=== PATIENT | male | born 1940 | race Caucasian/White ===

== ENCOUNTER 2017-01-04 16:30 | Observation (INO) ==
[2017-01-04 17:09] LABS: Basophils % 0.1 %; Eosinophils # 0.1 K/mcL (0.0-0.6); Eosinophils % 1.1 %; Hematocrit 25.3 % (37.5-50.1); Hemoglobin 8.4 g/dL (12.9-16.9); Immature Granulocytes % 0.4 % (0-4); Lymphocytes % 27.5 %; Mean Corpuscular HGB Conc 33.2 g/dL (31.6-35.5); Mean Corpuscular Hemoglobin 29.1 pg (28.0-33.3); Mean Corpuscular Volume 87.5 fL (83.0-100.0); Mean Platelet Volume 10.7 fL (9.4-12.4); Monocytes # 0.6 K/mcL (0.0-1.3); Monocytes % 7.7 %; Neutrophils # 4.5 K/mcL (1.6-8.9); Platelet Count 123 K/mcL (140-400); Red Blood Count 2.89 M/mcL (4.19-5.50); Red Cell Distribution Width 17.2 % (11.5-14.5); Segmented Neutrophils % 63.2 %
[2017-01-04 17:15] LABS: INR 1.1; Prothrombin Time 12.3 Seconds (9.4-12.1)
[2017-01-04 17:18] LABS: Activated Partial Thrombo Time 28.8 Seconds (26.0-36.0)
[2017-01-04 17:27] LABS: Alanine Aminotransferase 11 Units/L (0-55); Albumin/Globulin Ratio 1.3 (1.1-2.2); Alkaline Phosphatase 75 Units/L (38-126); Aspartate Amino Transferase 14 Units/L (5-34); BUN/Creatinine Ratio 23 (6-26); Bilirubin,Total 0.6 mg/dL (0.2-1.2); Blood Urea Nitrogen 21 mg/dL (8-26); Calcium 9.2 mg/dL (8.6-10.8); Carbon Dioxide 25 mEq/L (19-29); Chloride 111 mEq/L (98-109); Globulin 2.4 g/dL (2.4-3.5); Glucose 105 mg/dL (70-99); Osmolality,Calculated 299 (280-300); Potassium 4.2 mEq/L (3.5-4.5); Sodium 143 mEq/L (136-145); Total Protein 5.4 g/dL (6.0-8.3); eGFR For African Americans > 60 (> 60); eGFR For Non-African Americans > 60 (> 60)
--- NOTE | 2017-01-04 17:52 | Emergency Department Note ---
Disposition Clinical Impression: Lower gastrointestinal hemorrhage, Diverticulitis, Anemia Disposition: Admitted As Inpatient Condition: Fair Referrals: Brandon Cancino DO [Primary Care Provider] - Forms: ED Satisfaction Letter Time of Disposition: 18:10 (lauro jauregui) General Adult HPI - General Chief complaint: ED GI Bleed Stated complaint: rectal bleeding , abd. pain Time Seen by Provider: 01/04/17 16:45 Source: patient, family Mode of arrival: ambulatory Limitations: no limitations - History of Present Illness HPI Narrative: Patient was seen planing of rectal bleeding and weakness patient states that he is on blood thinner he states he has had a history of hemorrhoids he denies diverticular disease [facility] records shows history of diverticulosis he denies chest pain chest pressure states there is having abdominal pain denies any rashes or lesions denies any numbness [place] is cough cold or flulike symptoms Onset (ago): day(s) Location: buttocks Radiation: non-radiation Pain Severity: moderate Pain Scale: 5 Quality: aching Improves with: nothing Worsens with: nothing Associated symptoms: Reports: malaise, weakness. Denies: confusion, chest pain , cough, diaphoresis, fever/chills, headaches, loss of appetite, nausea/vomiting , seizure, shortness of breath, syncope Treatments Prior to Arrival: none - Related Data Home Medications Medication Instructions Recorded Confirmed Aspirin Enteric Coated [Aspirin EC] 81 mg PO DAILY 05/13/16 01/04/17 Atorvastatin [Lipitor] 80 mg PO HS 05/13/16 01/04/17 Carvedilol 3.125 mg PO BID 05/13/16 01/04/17 Nitroglycerin [Nitrostat] 0.4 mg SL AD PRN 05/13/16 01/04/17 Omeprazole [PriLOSEC] 20 mg PO DAILY 05/13/16 01/04/17 Ticagrelor [Brilinta] 90 mg PO BID 05/13/16 01/04/17 Furosemide [Lasix] 20 mg PO DAILY 08/18/16 01/04/17 Potassium Chloride [Klor-Con 10 meq PO DAILY 08/18/16 01/04/17 Sprinkle] Allopurinol [Zyloprim] 300 mg PO DAILY 01/04/17 01/04/17 Previous Rx's Medication Instructions Recorded Ipratropium/Albuterol Neb [Duoneb] 3 ml IH [id number] 30 Days 06/01/16 Allergies Allergy/AdvReac Type Severity Reaction Status Date / Time No Known Allergies Allergy Verified 06/29/16 13:15 All systems ED: reviewed and negative except as stated. Constitutional: Denies: fever Eyes: Denies: eye pain ENT ED: Denies: ear pain Respiratory: Denies: cough Gastrointestinal: Reports: abdominal pain, nausea, hematochezia Genitourinary: Denies: urgency Musculoskeletal: Denies: back pain Integumentary: Denies: rash Neurological: Denies: headache Psychiatric: Denies: anxiety Endocrine: Denies: fatigue Hematological/Lymphatic: Reports: easy bleeding, easy bruising Allergic/Immunologic: Denies: facial swelling Past Medical History - Past Medical History Attestation: Yes The following information was validated with the patient. Source: patient, old records reviewed, nursing notes reviewed Medical history: Reports: coronary artery disease, GERD, hyperlipidemia, hypertension, myocardial infarction Surgical history: Reports: angioplasty/stent Psychiatric history: Reports: no psych history - Social History Smoking Status: Former smoker Smokeless Tobacco Status: No Alcohol use: Reports: none Drug use: Reports: none Physical Exam - General Limitations: no limitations General appearance: alert, in no apparent distress - Head Head exam: atraumatic, normocephalic, normal inspection - Eye Eye exam: Present: normal appearance, PERRL, EOMI - ENT ENT exam: normal exam, normal oropharynx, mucous membranes moist, normal external ear exam - Neck Neck exam: Present: normal inspection, full ROM, trachea midline - Chest Chest inspection: Present: normal inspection, symmetric chest wall rise - Respiratory Respiratory exam: Present: normal lung sounds bilaterally - Cardiovascular Cardiovascular exam: Present: regular rate, normal rhythm, normal heart sounds - Abdominal Exam Abdominal exam: Present: soft, Non-Tender, normal bowel sounds. Absent: mass, pulsatile mass - Rectal Exam Rectal exam: Present: normal rectal tone, heme (+) stool. Absent: hemorrhoids - Extremities Exam Extremities exam: Present: normal inspection, full ROM, normal capillary refill. Absent: tenderness, joint swelling - Expanded Lower Extremity Exam Neurovascular/Tendon exam: Present: normal capillary refill, normal fine/light touch Gait: observed and normal - Back Exam Back exam: Present: normal inspection, full ROM. Absent: rashes - Neurological Exam Neurological exam: Present: alert, oriented X3, CN II-XII intact, normal gait - Psychiatric Psychiatric exam: Present: normal affect, normal mood - Skin Skin exam: Present: warm, dry, intact, normal color Course Course Narrative: Patient was seen and examined labs ordered CT performed showing acute diverticular disease will start on antibiotics admit started on IV fluids we will monitor due the fact he is on Brilinta ultimately need endoscopy Vital Signs Temperature 99.8 F H 01/04/17 16:36 Pulse Rate 70 01/04/17 16:36 Respiratory Rate 18 01/04/17 16:36 Blood Pressure 98/63 01/04/17 16:36 O2 Sat by Pulse Oximetry 98 01/04/17 16:36 Temperature 98.2 F 01/04/17 18:06 Pulse Rate 69 01/04/17 18:06 Respiratory Rate 14 01/04/17 18:06 Blood Pressure 100/49 01/04/17 18:06 O2 Sat by Pulse Oximetry 98 01/04/17 18:06 Oxygen Delivery Oxygen Delivery Room Air Medical Decision Making - [facility] Narrative Medical decision making narrative: DIVERTICULITIS hemorrhoids recommended admission - Medical Records Medical records reviewed: Yes I reviewed the patient's medical records. - Lab Data Lab results reviewed: Yes I reviewed the patient's lab results. Result diagrams: 01/04/17 17:02 01/04/17 17:02 Lab Results 01/04/17 01/04/17 01/04/17 Range/Units 17:02 17:02 17:02 WBC 7.1 (4.3-11.1) K/mcL RBC 2.89 L (4.19-5.50) M/mcL Hgb 8.4 L (12.9-16.9) g/dL Hct 25.3 L (37.5-50.1) % MCV 87.5 (83.0-100.0) fL MCH 29.1 (28.0-33.3) pg MCHC 33.2 (31.6-35.5) g/dL RDW 17.2 H (11.5-14.5) % Plt Count 123 L (140-400) K/mcL MPV 10.7 (9.4-12.4) fL Immature Gran % 0.4 (0-4) % Seg Neutrophils % 63.2 % Lymphocytes % 27.5 % Monocytes % 7.7 % Eosinophils % 1.1 % Basophils % 0.1 % Neutrophils # 4.5 (1.6-8.9) K/mcL Lymphocytes # 2.0 (0.6-4.6) K/mcL Monocytes # 0.6 (0.0-1.3) K/mcL Eosinophils # 0.1 (0.0-0.6) K/mcL Basophils # 0.0 (0.0-0.2) K/mcL PT 12.3 H (9.4-12.1) Seconds INR 1.1 APTT 28.8 (26.0-36.0) Seconds Sodium 143 (136-145) mEq/L Potassium 4.2 (3.5-4.5) mEq/L Chloride 111 H (98-109) mEq/L Carbon Dioxide 25 (19-29) mEq/L BUN 21 (8-26) mg/dL Creatinine 0.91 (0.72-1.25) mg/dL Est GFR ( Amer) > 60 (> 60) Est GFR (Non-Af Amer) > 60 (> 60) BUN/Creatinine Ratio 23 (6-26) Glucose 105 H (70-99) mg/dL Calculated Osmolality 299 (280-300) Calcium 9.2 (8.6-10.8) mg/dL Total Bilirubin 0.6 (0.2-1.2) mg/dL AST 14 (5-34) Units/L ALT 11 (0-55) Units/L Alkaline Phosphatase 75 (38-126) Units/L Serum Total Protein 5.4 L (6.0-8.3) g/dL Albumin 3.0 L (3.5-5.0) g/dL Globulin 2.4 (2.4-3.5) g/dL Albumin/Globulin Ratio 1.3 (1.1-2.2) - Radiology Data Radiology results reviewed: Yes I reviewed the patient's radiology results. ITS Impressions Abdomen/Pelvis CT 01/04/17 16:48 IMPRESSION: Subtle injection is seen of fat near the junction of descending colon and proximal sigmoid colon, for which mild diverticulitis should be considered given patient history. Follow-up to resolution is suggested. No evidence of obstructive uropathy. D/ / Benton White MD / Benton White MD Interpreting Provider: Benton White MD Critical Care Time Critical Care Time: No
[2017-01-04] MEDS ORDERED: MetroNIDAZOLE 500 MG/100 ML 500 MG/100 ML BAG IVPB ONE (18:15)
[2017-01-04] MEDS ORDERED: Naloxone 0.4 MG/ML INJ IVP PRN (20:48)
[2017-01-04] MEDS ORDERED: Nitroglycerin 0.4 MG TAB.SUBL SL PRN (20:48)
[2017-01-04] MEDS ORDERED: 0.9 % Sodium Chloride 1,000 ML IVC SCH ×2 (20:48→22:33)
[2017-01-04 22:03] LABS: Basophils % 0.2 %; Eosinophils # 0.1 K/mcL (0.0-0.6); Eosinophils % 2.4 %; Hemoglobin 7.4 g/dL (12.9-16.9); Immature Granulocytes % 0.4 % (0-4); Lymphocytes # 1.8 K/mcL (0.6-4.6); Mean Corpuscular HGB Conc 33.6 g/dL (31.6-35.5); Mean Corpuscular Hemoglobin 29.5 pg (28.0-33.3); Mean Corpuscular Volume 87.6 fL (83.0-100.0); Mean Platelet Volume 10.7 fL (9.4-12.4); Monocytes # 0.4 K/mcL (0.0-1.3); Monocytes % 7.2 %; Neutrophils # 3.1 K/mcL (1.6-8.9); Platelet Count 111 K/mcL (140-400); Red Blood Count 2.51 M/mcL (4.19-5.50); Red Cell Distribution Width 17.2 % (11.5-14.5); Segmented Neutrophils % 56.8 %
[2017-01-04] MEDS: MetroNIDAZOLE 500 MG/100 ML 500 MG/100 ML BAG IVPB SCH (22:41)
[2017-01-04] MEDS: *HR* Ticagrelor 90 MG TABLET PO SCH (22:41)
[2017-01-04] MEDS: Ipratropium/Albuterol Neb 3 ML IH SCH ×2 (23:26→23:29)
[2017-01-05] MEDS: MetroNIDAZOLE 500 MG/100 ML 500 MG/100 ML BAG IVPB SCH ×3 (04:25→14:45)
[2017-01-05] MEDS: Ipratropium/Albuterol Neb 3 ML IH SCH ×3 (04:44→13:48)
[2017-01-05 05:25] LABS: Basophils % 0.2 %; Eosinophils # 0.1 K/mcL (0.0-0.6); Eosinophils % 2.3 %; Hematocrit 18.9 % (37.5-50.1); Hemoglobin 6.4 g/dL (12.9-16.9); Immature Granulocytes % 0.2 % (0-4); Lymphocytes # 1.5 K/mcL (0.6-4.6); Lymphocytes % 26.2 %; Mean Corpuscular HGB Conc 33.9 g/dL (31.6-35.5); Mean Corpuscular Hemoglobin 29.5 pg (28.0-33.3); Mean Corpuscular Volume 87.1 fL (83.0-100.0); Mean Platelet Volume 10.6 fL (9.4-12.4); Monocytes # 0.4 K/mcL (0.0-1.3); Monocytes % 6.6 %; Neutrophils # 3.6 K/mcL (1.6-8.9); Platelet Count 93 K/mcL (140-400); Red Blood Count 2.17 M/mcL (4.19-5.50); Red Cell Distribution Width 17.2 % (11.5-14.5); Segmented Neutrophils % 64.5 %
[2017-01-05 05:30] LABS: INR 1.2; Prothrombin Time 12.8 Seconds (9.4-12.1)
[2017-01-05 05:32] LABS: Activated Partial Thrombo Time 28.4 Seconds (26.0-36.0)
[2017-01-05 05:39] LABS: BUN/Creatinine Ratio 25 (6-26); Blood Urea Nitrogen 20 mg/dL (8-26); Calcium 8.2 mg/dL (8.6-10.8); Carbon Dioxide 21 mEq/L (19-29); Chloride 113 mEq/L (98-109); Glucose 99 mg/dL (70-99); Osmolality,Calculated 297 (280-300); Potassium 3.6 mEq/L (3.5-4.5); Sodium 142 mEq/L (136-145); eGFR For African Americans > 60 (> 60); eGFR For Non-African Americans > 60 (> 60)
[2017-01-05] MEDS ORDERED: 0.9 % Sodium Chloride 250 ML ONE ×2 (07:57→11:34)
[2017-01-05] MEDS: *HR* Ticagrelor 90 MG TABLET PO SCH (08:21)
[2017-01-05] MEDS ORDERED: Aspirin Enteric Coated 81 MG Tablet PO SCH (09:00)
[2017-01-05] MEDS ORDERED: Furosemide 20 MG TABLET PO SCH (09:00)
--- NOTE | 2017-01-05 11:39 | Internal Med History&Physical ---
Date of Encounter: 01/05/17 Time of Encounter: 11:05 Assessment and Plan (1) Diverticulitis Current visit: Yes Status: Acute He has been started on IV Flagyl and Cipro. Qualifiers: Diverticulitis site: large intestine Diverticulitis bleeding: with bleeding Diverticulitis complication: without perforation or abscess Qualified Code(s): K57.33 - Diverticulitis of large intestine without perforation or abscess with bleeding (2) Anemia Current visit: Yes Status: Chronic Hemoglobin was 7.7 on 08/18/2016. We will order anemia testing in a.m. His hemoglobin this morning was 6.4 and 2 units packed red blood cells were ordered. Aspirin and Brilinta will be held. Qualifiers: Anemia type: unspecified type Qualified Code(s): D64.9 - Anemia, unspecified (3) Gout Current visit: No Status: Chronic Uric acid level was 6.4 on 06/29/2016. Qualifiers: Gout site: unspecified site Gout etiology: unspecified cause Chronicity: chronic Presence of tophus: without tophus Qualified Code(s): M1A.9XX0 - Chronic gout, unspecified, without tophus (tophi) Internal Medicine - H&P: HPI Chief complaint: Hematochezia, weakness Admitted From: Home Plans for Post Hospital Care: Home History of present illness: Mr. John is a 76 year old male came to emergency room stating he had noted hematochezia approximately noon time on January 03. There was no significant abdominal discomfort at the time. He has total of 4 BMs Tuesday and 4 BMs the following day with all of them showing evidence of hematochezia. He began to feel more weak. He came to emergency room and was evaluated and found to have hemoglobin of 8.4. Abdominal/pelvic CT showed evidence of diverticulitis near the junction of the descending and sigmoid colon. [facility]. He denies previous episodes of hematochezia. He reports colonoscopy was done 2009 and showed only internal hemorrhoids. He states he had upper GI bleed July 2016 and was hospitalized [facility]. He does not know the exact diagnosis. He was placed on Prilosec following EGD and has had no further evidence of upper GI bleeds. He reports an intervention was done during the EGD to treat the upper GI bleed but he does not know details. He denies disorders of his liver gallbladder or exocrine pancreas. He states he has mild lower abdominal discomfort at the present time. Past Med Surg Social Fam HX - Past Medical History Medical history: COPD, coronary artery disease, GERD, GI bleed, hyperlipidemia, hypertension, myocardial infarction Psychiatric history: no psych history - Past Surgical History Surgical History: angioplasty/stent - Social History Smoking Status: Former smoker Smokeless Tobacco Status: No Alcohol use: none Drug use: none Internal Medicine - H&P: Meds Aspirin Enteric Coated [Aspirin EC] 81 mg PO DAILY 05/13/16 [History] Atorvastatin [Lipitor] 80 mg PO HS 05/13/16 [History] Carvedilol 3.125 mg PO BID 05/13/16 [History] Nitroglycerin [Nitrostat] 0.4 mg SL AD PRN 05/13/16 [History] Omeprazole [PriLOSEC] 20 mg PO DAILY 05/13/16 [History] Ticagrelor [Brilinta] 90 mg PO BID 05/13/16 [History] Ipratropium/Albuterol Neb [Duoneb] 3 ml IH [id number] 30 Days 06/01/16 [Rx] Furosemide [Lasix] 20 mg PO DAILY 08/18/16 [History] Potassium Chloride [Klor-Con Sprinkle] 10 meq PO DAILY 08/18/16 [History] Allopurinol [Zyloprim] 300 mg PO DAILY 01/04/17 [History] Allergies No Known Allergies Allergy (Verified 06/29/16 13:15) All Systems PM: A 10-system review of systems was performed and is negative for pertinent findings except as documented above in the HPI. Review of systems: Gen.: He states his weight has been stable the past few months Cardiovascular: He has history of hypertension. He has known ASHD status post [place] April 2016 with 4 stents placed at [facility]. He has a diagnosis of CHF and has occasional leg edema. He denies DVT or pulmonary embolus. Respiratory: He smoked from age [age] never more than one fourth pack per day. He states he had pulmonary function test within the past year and was told he had COPD but does not use home oxygen. GI: As per history of present illness : He denies hematuria dysuria or kidney stones Neurologic: He denies large distribution strokes or seizures. Endocrine: He has hyperlipidemia but denies diabetes or thyroid disease Hematology/oncology: Denies blood disorders cancers or anemia Psychiatric: He denies anxiety depression other mental health issues [place] skeletal: He has DJD and gout but denies other bone joint or muscle disorders. - Constitutional Vitals: Temp Pulse Resp BP Pulse Ox 98.5 F 76 16 124/67 97 01/05/17 10:52 01/05/17 10:52 01/05/17 10:52 01/05/17 10:52 01/05/17 10:52 Exam: Gen.: He is a well-developed well-nourished male who appears in no significant distress at present time HEENT: Head is atraumatic and normocephalic. Eyes: EOMI. There is no scleral icterus. Mouth: Mucosa is moist. Neck: Supple and nontender. There is no thyromegaly or adenopathy noted. Heart: Regular without murmurs gallops or ectopics Lungs: No wheezes or crackles are heard Abdomen: Abdomen slightly tympanitic to percussion. There is mild discomfort palpating the lower mid abdominal area. Bowel sounds are diminished. No masses or guarding noted. Extremities: There is no cyanosis edema or clubbing noted. Dorsalis pedis and posttibial pulses are trace palpable bilaterally. Neurologic: Mental status: He is talkative and a good historian. Cranial nerves : Smile is symmetric. Forehead wrinkles bilaterally. Tongue protrudes midline. EOMI. Motor: There is no pronator drift. Cerebellar: Finger to nose is intact bilaterally. Skin: Warm and dry Internal Med - H&P Results - Labs CBC & Chem 7: 01/05/17 05:10 01/05/17 05:10 Labs: Short CBC 01/04/17 01/05/17 Range/Units 21:56 05:10 WBC 5.5 5.6 (4.3-11.1) K/mcL Hgb 7.4 L 6.4 L (12.9-16.9) g/dL Hct 22.0 L 18.9 L (37.5-50.1) % Plt Count 111 L 93 L (140-400) K/mcL Neutrophils # 3.1 3.6 (1.6-8.9) K/mcL BMP 05/17/17 05:10 Sodium 142 Potassium 3.6 Chloride 113 H Carbon Dioxide 21 BUN 20 Creatinine 0.80 Glucose 99 Calcium 8.2 L
[2017-01-05] MEDS ORDERED: Ipratropium/Albuterol Neb 3 ML IH PRN (13:46)
[2017-01-05 15:28] VITALS: BP 146/75
[2017-01-05 17:19] LABS: Basophils % 0.5 %; Eosinophils # 0.2 K/mcL (0.0-0.6); Eosinophils % 2.9 %; Hemoglobin 9.2 g/dL (12.9-16.9); Immature Granulocytes % 0.5 % (0-4); Lymphocytes # 1.7 K/mcL (0.6-4.6); Lymphocytes % 25.4 %; Mean Corpuscular HGB Conc 34.1 g/dL (31.6-35.5); Mean Corpuscular Hemoglobin 29.6 pg (28.0-33.3); Mean Corpuscular Volume 86.8 fL (83.0-100.0); Mean Platelet Volume 11.2 fL (9.4-12.4); Monocytes # 0.5 K/mcL (0.0-1.3); Monocytes % 8.3 %; Neutrophils # 4.1 K/mcL (1.6-8.9); Platelet Count 112 K/mcL (140-400); Red Blood Count 3.11 M/mcL (4.19-5.50); Red Cell Distribution Width 16.6 % (11.5-14.5); Segmented Neutrophils % 62.4 %
--- NOTE | 2017-01-05 17:21 | Discharge Summary ---
Date of Encounter: 01/05/17 Time of Encounter: 16:30 - Discharge Diagnosis (1) Diverticulitis Priority: Primary Status: Acute Qualifiers: Diverticulitis site: large intestine Diverticulitis bleeding: with bleeding Diverticulitis complication: without perforation or abscess Qualified Code(s): K57.33 - Diverticulitis of large intestine without perforation or abscess with bleeding (2) Anemia Priority: Secondary Status: Chronic Qualifiers: Anemia type: unspecified type Qualified Code(s): D64.9 - Anemia, unspecified (3) Gout Priority: Secondary Status: Chronic Qualifiers: Gout site: unspecified site Gout etiology: unspecified cause Chronicity: chronic Presence of tophus: without tophus Qualified Code(s): M1A.9XX0 - Chronic gout, unspecified, without tophus (tophi) - Discharge Medications Home Medications: Atorvastatin [Lipitor] 80 mg PO HS 05/13/16 [History] Carvedilol 3.125 mg PO BID 05/13/16 [History] Nitroglycerin [Nitrostat] 0.4 mg SL AD PRN 05/13/16 [History] Omeprazole [PriLOSEC] 20 mg PO DAILY 05/13/16 [History] Ipratropium/Albuterol Neb [Duoneb] 3 ml IH [id number] 30 Days 06/01/16 [Rx] Furosemide [Lasix] 20 mg PO DAILY 08/18/16 [History] Potassium Chloride [Klor-Con Sprinkle] 10 meq PO DAILY 08/18/16 [History] Allopurinol [Zyloprim] 300 mg PO DAILY 01/04/17 [History] Allergies/Adverse Reactions: Allergies No Known Allergies Allergy (Verified 06/29/16 13:15) Procedures/tests Complete & Pending: Procedures Performed prior 72 hours Category Date Time Status EKG [ECG 12 lead ECG] [ECG] Routine Y 01/05/17 01:41 Completed Date of admission: 01/04/17 19:46 Primary care physician: Brandon Cancino - Patient Status Disposition: Transfer Other Condition: Fair - Discharge Instructions Hospital course: Mr. John is a 76 year old male who came to emergency room stating he had noted hematochezia approximately noon time on January 03. There was no significant abdominal discomfort at the time. He has total of 4 BMs Tuesday and 4 BMs the following day with all of them showing evidence of hematochezia. He began to feel more weak. He came to emergency room and was evaluated and found to have hemoglobin of 8.4. Abdominal/pelvic CT showed evidence of diverticulitis near the junction of the descending and sigmoid colon. He was admitted to [facility] for ongoing care needs. Initial orders were written by the emergency room physician. I saw him on January 05 and performed a history and physical. He was started on IV Flagyl and Cipro. Repeat CBC showed hemoglobin dropping to 6.4 the morning of January 05. He was transfused 2 units packed red blood cells. Vital signs remained. In the mid afternoon of January 05 he requested be transferred to [facility]. Contact was made with staff at [facility] and he was accepted in transfer there. - Time Spent with Patient Total time spent providing and/or coordinating discharge services: - Constitutional Vitals: Temp Pulse Resp BP Pulse Ox 98.0 F 82 14 146/75 98 01/05/17 14:19 01/05/17 15:12 01/05/17 14:19 01/05/17 15:12 01/05/17 14:19
--- NOTE | 2017-01-05 20:40 | Electrocardiograph Report ---
[address] [address] Test Date: 2017-01-04 Pat Name: Manish John Department: [id number] Room: [facility] Gender: M Lead Material Handler: Mansoor : 1940 Requested By: Yo Morales Order Number: [id number] Reading MD: Rambo White MD Measurements Intervals [place] Rate: 72 P: 51 MO: 138 QRS: 12 QRSD: 94 T: -85 QT: 398 QTc: 421 Interpretive Statements SINUS RHYTHM INFEROLATERAL ISCHEMIA Electronically Signed On 01-05-2017 20:38:42 EDT by Rambo White MD
[2017-01-05] MEDS ORDERED: Lactobacillus 1 EACH CAP.SPRINK PO SCH (21:00)
[2017-01-05] MEDS ORDERED: MetroNIDAZOLE 500 MG/100 ML 500 MG/100 ML BAG IVPB SCH (22:00)
== END 2017-01-05 17:29 | disposition other institution (70) ==
LOC: INPPIK 16:30 → EMEROOPIK 16:30 → INPPIK 20:04
PROVIDERS: ADMIT Internal Medicine; ATTEND Internal Medicine